=== PATIENT | male | born 1950 | race Caucasian/White ===

== ENCOUNTER 2019-06-17 10:25 | Emergency (ER) | payer MEDICARE, SELFPAY ==
[2019-06-17 10:29] VITALS: BP 174/100; BP 186/94; PULSE 84; RESP 19; TEMP 36.4; O2SAT 97; BMI 27.8
--- NOTE | 2019-06-17 10:36 | ECG_ITS ---
Measurements Intervals [place] Rate: 73 P: 36 SC: 137 QRS: 171 QRSD: 154 T: 85 QT: 436 QTc: 482 ELECTRONIC VENTRICULAR PACEMAKER ABNORMAL RHYTHM ECG No previous ECG available for comparison Electronically Signed On 06-17-2019 19:27:12 [employer] SWAGE OPERATOR by Antoine Lopez M.D. [id number]
--- NOTE | 2019-06-17 10:36 | XR_ITS ---
WS: [id number] Portable AP upright chest, 06/17/2019 Clinical Data: high blood pressure Comparison: Portable chest, 05/14/2010. Findings: No nodules, masses or effusions are seen. The heart is normal. The pulmonary vascularity is not increased. No pneumonia or pneumothorax is seen. There is a multilead pacemaker in good position . The generator overlies the left lower lung. XR/XR chest 1V portable [id number] Impression: Atherosclerosis.
--- NOTE | 2019-06-17 10:43 | ED_ITS ---
HPI - General Adult General: Chief complaint: General Medical Stated complaint: High Blood pressure Time Seen by Provider: 06/17/19 10:43 Source: patient Mode of arrival: ambulatory Limitations: no limitations History of Present Illness: HPI narrative: Patient comes in this morning due to high blood pressure and some mild chest discomfort. Patient reports waking up at 4 in check his blood pressure and it was like 220 systolic. Patient then got up at 8 and had some chest discomfort which he had also had previously and his blood pressure at that time was 200 systolic. Patient comes in due to the chest discomfort and the elevated blood pressure. Patient reports chest discomfort has resolved. And blood pressure seems to have improved some since arriving to the ER. Nursing checked blood pressure in both arms which they were similar. Patient appears well. Patient appears in no acute distress. Associated symptoms: Reports chest pain (mild) Review of Systems General: Reports: 10 or more systems reviewed and unremarkable except in HPI and below Card: Reports: chest pain (mild) PFSH ED PFSH: Statuses (acute, chronic, etc) shown below reflect problem list status as previously entered and may not be historically accurate Social History Smoking and tobacco status: former smoker Physical Exam Const: COMMON NORMALS: no apparent distress and oriented x3 GENERAL APPEARANCE: cooperative HENMT: COMMON NORMALS: normocephalic, external ears normal, EAC's normal, TM's normal bilaterally and external nose normal HEAD & SCALP: normal to inspection and normocephalic FACE & SINUS: normal facial exam NOSE: external nose normal GENERAL EAR: hearing not grossly impaired EXTERNAL EAR: Yes external ears normal EXTERNAL AUDITORY CANAL: EAC's normal TYMPANIC MEMBRANE: TM's normal bilaterally MOUTH: oral and palatal mucosa normal THROAT: posterior oropharynx normal Eye: COMMON NORMALS: PERRL and EOMs intact bilaterally PUPIL: Yes PERRL Neck/C-Spine: COMMON NORMALS: full ROM and no lymphadenopathy Lymph: LYMPHATIC: no lymphedema noted Chest: COMMONS NORMALS: inspection of chest normal and palpation of chest normal Resp: COMMON NORMALS: normal respiratory effort and clear to auscultation bilaterally AUSCULTATION: clear to auscultation bilaterally Cardio: COMMON NORMALS: regular rate and regular rhythm RATE: regular rate RHYTHM: regular rhythm GI: COMMON NORMALS: normal to inspection, nondistended, normoactive bowel sounds and non-tender : COMMON NORMALS: Yes no CVA tenderness BLADDER/KIDNEY EXAM: Yes no CVA tenderness Back/Pelvis: COMMON NORMALS: no CVA tenderness and thoracic and lumbar spine normal to inspection Extremity: COMMON NORMALS: normal to inspection GENERAL: No edema Neuro: COMMON NORMALS: oriented x3, moves all extremities and no focal motor deficits Psych: COMMON NORMALS: mental status grossly normal and cooperative Skin: COMMON NORMALS: no rashes or lesions noted GENERAL SKIN EXAM: no rashes or lesions noted Course Vital Signs: Vital signs: Vital Signs Temperature 97.5 F L 06/17/19 10:29 Pulse Rate 75 06/17/19 11:01 Respiratory Rate 18 06/17/19 12:08 Blood Pressure 186/96 06/17/19 12:08 Pulse Oximetry 97 06/17/19 11:01 MDM - General Adult MDM Narrative: Medical decision making narrative: Patient comes in today with complaints of elevated blood pressure. Patient states that for last 2 weeks he has had a cough and cold symptoms that has not been able to improve. Patient has been taking extra ibuprofen and he is noted that his blood pressure is elevated over the time. Patient comes in this morning due to some chest discomfort that started about 4:00. Patient denies any pain at this time. Exam notes respirations were even lungs were clear to auscultation with good air movement. No edema was noted in the extremities. Differential diagnosis includes CHF, ACS, pneumonia, acute bronchitis, uncontrolled hypertension, adverse drug effect. Laboratory values were insignificant. Chest x-ray was normal. Reviewed exam with patient recommended treatment for bronchitis and clonidine as needed for breakthrough blood pressure. Discussed use of ibuprofen and try to decrease the amount of ibuprofen he is using and use Tylenol more often. Patient reports understanding of care plan and need for follow-up with primary care in 1 week. Lab Data: Labs: Lab Results 06/17/19 06/17/19 06/17/19 Range/Units 10:50 10:50 10:50 WBC 6.6 (4.0-10.0) 10^3/ uL RBC 3.97 L (4.1-5.3) 10^6/u L Hgb 9.3 L (11.7-16.6) g/dL Hct 31.0 L (42.0-52.0) % MCV 78.1 L (80-94) fL MCH 23.4 L (28.0-34.0) pg MCHC 30.0 (30.0-36.0) g/dL RDW 15.3 H (12.1-15.1) % Plt Count 234 (130-400) 10^3/c mm MPV 9.2 (7.4-10.4) fL Neut % (Auto) 64.7 % Lymph % (Auto) 20.5 % [place] % (Auto) 6.0 % Eos % (Auto) 7.4 % Baso % (Auto) 0.8 % Neut # (Auto) 4.3 (1.8-7.7) 10^3/u L Lymph # (Auto) 1.4 (0.8-4.8) 10^3/u L [place] # (Auto) 0.4 (0.2-0.9) 10^3/u L Eos # (Auto) 0.5 (0.0-0.8) 10^3/u L Baso # (Auto) 0.1 (0.0-0.1) 10^3/u L Nucleated RBC % (a uto) 0 % Nucleated RBCs # 0.0 /100WBC Sodium 137 (136-145) mmol/L Potassium 4.0 (3.5-5.1) mmol/L Chloride 101 (98-107) mmol/L Carbon Dioxide 24 (22-29) mmol/L Anion Gap 16.0 (5-19) BUN 9 (8-23) mg/dL Creatinine 1.1 (0.7-1.2) mg/dL Glucose 142 H (74-106) mg/dL Calcium 9.7 (8.8-10.2) mg/Dl Magnesium 1.6 L (1.7-2.3) mg/dL Total Bilirubin 0.4 (0.15-1.2) mg/dL AST 25 (0-40) U/L ALT 19 (0-41) U/L Alkaline Phosphata se 81 (40-130) IU/L Troponin T Baselin e 13 (0-15) ng/mL NT-Pro-B Natriuret Pep (0-125) pg/mL Total Protein 7.8 (6.6-8.7) g/dL Albumin 4.4 (3.5-5.2) g/dL Globulin 3.4 (1.3-4.6) g/dL TSH 1.91 (0.27-4.20) uIU/ mL Urine Color (Yellow) Urine Appearance (CLEAR) Urine pH (5-7) Ur Specific Gravit y (1.005-1.030) Urine Protein (Negative) Urine Glucose (UA) (Normal) Urine Ketones (Negative) Urine Occult Blood (Negative) Urine Nitrate (Negative) Urine Bilirubin (NEGATIVE) Urine Urobilinogen (Negative) mg/dL Ur Leukocyte Jade ase (Negative) Urine RBC (0-2) /hpf Urine WBC (0-5) /hpf Ur Squamous Epith Cells (0-5) Urine Bacteria (NONE) 06/17/19 06/17/19 Range/Units 10:50 11:49 WBC (4.0-10.0) 10^3/ uL RBC (4.1-5.3) 10^6/u L Hgb (11.7-16.6) g/dL Hct (42.0-52.0) % MCV (80-94) fL MCH (28.0-34.0) pg MCHC (30.0-36.0) g/dL RDW (12.1-15.1) % Plt Count (130-400) 10^3/c mm MPV (7.4-10.4) fL Neut % (Auto) % Lymph % (Auto) % [place] % (Auto) % Eos % (Auto) % Baso % (Auto) % Neut # (Auto) (1.8-7.7) 10^3/u L Lymph # (Auto) (0.8-4.8) 10^3/u L [place] # (Auto) (0.2-0.9) 10^3/u L Eos # (Auto) (0.0-0.8) 10^3/u L Baso # (Auto) (0.0-0.1) 10^3/u L Nucleated RBC % (a uto) % Nucleated RBCs # /100WBC Sodium (136-145) mmol/L Potassium (3.5-5.1) mmol/L Chloride (98-107) mmol/L Carbon Dioxide (22-29) mmol/L Anion Gap (5-19) BUN (8-23) mg/dL Creatinine (0.7-1.2) mg/dL Glucose (74-106) mg/dL Calcium (8.8-10.2) mg/Dl Magnesium (1.7-2.3) mg/dL Total Bilirubin (0.15-1.2) mg/dL AST (0-40) U/L ALT (0-41) U/L Alkaline Phosphata se (40-130) IU/L Troponin T Baselin e (0-15) ng/mL NT-Pro-B Natriuret Pep 409 H (0-125) pg/mL Total Protein (6.6-8.7) g/dL Albumin (3.5-5.2) g/dL Globulin (1.3-4.6) g/dL TSH (0.27-4.20) uIU/ mL Urine Color Straw (Yellow) Urine Appearance Clear (CLEAR) Urine pH 7.0 (5-7) Ur Specific Gravit y 1.000 L (1.005-1.030) Urine Protein 1+ H (Negative) Urine Glucose (UA) Norm (Normal) Urine Ketones Negative (Negative) Urine Occult Blood Neg (Negative) Urine Nitrate Negative (Negative) Urine Bilirubin Neg (NEGATIVE) Urine Urobilinogen Norm (Negative) mg/dL Ur Leukocyte Jade ase Negative (Negative) Urine RBC None (0-2) /hpf Urine WBC None (0-5) /hpf Ur Squamous Epith Cells Rare (0-5) Urine Bacteria Trace (NONE) Discharge Plan Discharge Patient Disposition: Home, Self-Care Clinical Impression: Acute bronchitis Qualifiers: Bronchitis organism: unspecified organism Qualified Code(s): J20.9 - Acute bronchitis, unspecified Hypertension Qualifiers: Hypertension type: unspecified Qualified Code(s): I10 - Essential (primary) hypertension Condition: Stable Prescriptions: New clonidine HCl 0.1 mg tablet 0.1 mg PO Q8H PRN (Reason: hypertensive emergency) Qty: 30 RF: 0 doxycycline hyclate 100 mg capsule 100 mg PO Q12H 10 Days Qty: 20 RF: 0 alprazolam 0.25 mg tablet 0.25 mg PO TID PRN (Reason: anxiety) Qty: 20 RF: 0 Discharge Diet: Usual diet Discharge Activity: Resume usual activity Patient Instructions: Hypertension (ED) Activity Restrictions/Additional Instructions: Drink plenty of fluids, within any fluid restrictions Follow-up with primary care in one week Medications as directed Return to ER for high fever or worsening shortness of breath Coding Level 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
[2019-06-17 10:59] LABS: Basophils # 0.1 10^3/uL (0.0-0.1); Basophils % 0.8 %; Eosinophils # 0.5 10^3/uL (0.0-0.8); Eosinophils % 7.4 %; Hemoglobin 9.3 g/dL (11.7-16.6); Lymphocytes # 1.4 10^3/uL (0.8-4.8); Lymphocytes % 20.5 %; Mean Corpuscular Hemoglobin 23.4 pg (28.0-34.0); Mean Corpuscular Volume 78.1 fL (80-94); Mean Platelet Volume 9.2 fL (7.4-10.4); Monocytes # 0.4 10^3/uL (0.2-0.9); Neutrophils # 4.3 10^3/uL (1.8-7.7); Neutrophils % 64.7 %; Nucleated Red Blood Cells % 0 %; Platelet Count 234 10^3/cmm (130-400); Red Blood Count 3.97 10^6/uL (4.1-5.3); Red Cell Distribution Width 15.3 % (12.1-15.1); White Blood Count 6.6 10^3/uL (4.0-10.0)
[2019-06-17 11:01] VITALS: BP 171/97; PULSE 75; RESP 20; O2SAT 97
[2019-06-17 11:18] LABS: Troponin(5th) Baseline 13 ng/mL (0-15)
[2019-06-17 11:25] LABS: Alanine Aminotransferase 19 U/L (0-41); Albumin Level 4.4 g/dL (3.5-5.2); Alkaline Phosphatase 81 IU/L (40-130); Aspartate Amino Transferase 25 U/L (0-40); Blood Urea Nitrogen 9 mg/dL (8-23); Calcium 9.7 mg/Dl (8.8-10.2); Carbon Dioxide 24 mmol/L (22-29); Chloride 101 mmol/L (98-107); Globulin 3.4 g/dL (1.3-4.6); Glucose 142 mg/dL (74-106); Magnesium 1.6 mg/dL (1.7-2.3); Sodium 137 mmol/L (136-145); Thyroid Stimulating Hormone 1.91 uIU/mL (0.27-4.20); Total Bilirubin 0.4 mg/dL (0.15-1.2); Total Protein 7.8 g/dL (6.6-8.7)
[2019-06-17 11:27] LABS: NT Pro B Type Natriuretic Pept 409 pg/mL (0-125)
[2019-06-17 12:08] VITALS: BP 186/96; RESP 18
[2019-06-17 12:18] LABS: Bilirubin Urine Neg (NEGATIVE); Blood Urine Neg (Negative); Glucose Urine UA Norm (Normal); Ketones Urine Negative (Negative); Nitrate Urine Negative (Negative); Protein Urine 1+ (Negative); Urine Appearance Clear (CLEAR); Urine Color Straw (Yellow)
[2019-06-17 12:19] LABS: Leukocyte Esterase Urine Negative (Negative); Urobilinogen Urine Norm (Negative)
[2019-06-17 12:25] LABS: Squamous Epithelial Cell Urine RARE (0-5)
[2019-06-17 12:26] LABS: Add Urine Culture? No; Bacteria Urine TRACE
[2019-06-17] MEDS: cloNIDine 0.1 mg Tablet PO (12:27)
[2019-06-17 12:46] VITALS: BP 185/103; PULSE 68; RESP 20; O2SAT 97
== END 2019-06-17 12:47 | disposition home or self-care (01) ==
PROVIDERS: Emergency Provider Nurse Practitioner Family
DX: I10 Essential (primary) hypertension (principal); J20.9 Acute bronchitis, unspecified; Z87.891 Personal history of nicotine dependence
CPT/HCPCS: 36415; 71045; 80053; 81001; 83735; 83880; 84443; 84484; 85025; 93005; 99283; A9270

== ENCOUNTER 2019-08-29 03:31 | Emergency (ER) | payer MEDICARE, SELFPAY ==
--- NOTE | 2019-08-29 03:35 | ED_ITS ---
Entered by Marie Lemus, acting as scribe for Sue Giron MD HPI - Extremity Injury (Lower) General: Chief Complaint: Extremity Injury, Lower Stated Complaint: right hip pain Time Seen by Provider: 08/29/19 03:34 Source: patient Mode of arrival: wheelchair Limitations: no limitations History of Present Illness: HPI Narrative: 69 yo m came to the er for right hip pain. Pt said that he has a pain in his right hip that radiates all down his right leg. Pt said that he did not fall or any injury, he came in because the pain got so bad. Pt rates the pain a 10/10. he state the pain is worse with walking and palpation. denies any bowel or bladder incontinence. Injury: Right: hip (pain) Place: home Severity: mild Relieving factors: nothing Exacerbating factors: weight bearing and movement Context: other (just hurts per pt) Other symptoms: none Review of Systems General: Reports: other (negative unless marked) Const: Denies: fever, chills, body aches or change in appetite Eyes: Denies: blurry vision or eye discomfort ENMT: Denies: throat pain or dental pain Card: Denies: chest pain Resp: Denies: shortness of breath GI: Denies: abdominal pain, nausea, vomiting or diarrhea : Denies: painful urination Musc: Reports: extremity pain (right hip pain that radiates down his right leg) Skin/Breast: Denies: rash Neuro: Denies: headache Psych: Denies: depression Moiz/Lymph: Denies: easy bruising All/Imm: Denies: hives PFSH ED PFSH: Social History Smoking and tobacco status: former smoker Physical Exam Const: COMMON NORMALS: no apparent distress, oriented x3 and healthy appearing HENMT: COMMON NORMALS: normocephalic and head/scalp atraumatic HEAD & SCALP: normocephalic and atraumatic Eye: COMMON NORMALS: PERRL and EOMs intact bilaterally PUPIL: Yes PERRL Neck/C-Spine: COMMON NORMALS: full ROM and supple Chest: COMMONS NORMALS: inspection of chest normal and palpation of chest normal Resp: COMMON NORMALS: normal respiratory effort, no retractions, no use of accessory muscles and clear to auscultation bilaterally AUSCULTATION: clear to auscultation bilaterally Cardio: COMMON NORMALS: regular rate, regular rhythm and no murmurs RATE: regular rate RHYTHM: regular rhythm GI: COMMON NORMALS: normal to inspection, nondistended, normoactive bowel sounds, soft to palpation, non-tender and no masses PALPATION: Yes soft Extremity: COMMON NORMALS: normal to inspection and full ROM NARRATIVE EXTREMITY EXAM: tenderness over right lower lumbar. no saddle anesthesia. pt able to ambulate without difficulty Neuro: COMMON NORMALS: oriented x3, moves all extremities and no focal motor deficits Psych: COMMON NORMALS: mental status grossly normal, thought process normal and cooperative THOUGHT PROCESS: normal thought process Skin: COMMON NORMALS: no rashes or lesions noted and no wounds GENERAL SKIN EXAM: no rashes or lesions noted MDM - Extremity Injury (Lower) MDM Narrative: Medical decision making narrative: Patient presents here with right lumbar pain with sciatica. Patient given instructions on piriformis stretches. Patient is to ice as well. We will place him on Naprosyn along with a steroid. Patient is stable for discharge. He has no signs of cord compression or epidural abscess. Discharge Plan Discharge Patient Disposition: Home, Self-Care Clinical Impression: Sciatica of right side Condition: Stable Prescriptions: New prednisone 50 mg tablet 50 mg PO DAILY Qty: 5 RF: 0 EC-Naprosyn 500 mg tablet,delayed release (DR/EC) 500 mg PO BID PRN (Reason: pain) Qty: 20 RF: 0 No Action clonidine HCl 0.1 mg tablet 0.1 mg PO Q8H PRN (Reason: hypertensive emergency) Qty: 30 RF: 0 alprazolam 0.25 mg tablet 0.25 mg PO TID PRN (Reason: anxiety) Qty: 20 RF: 0 Discharge Orders: Discharge Order (Routine); Ordered 08/29/19 Ordered By: Sue Giron Discharge Diet: Advance as tolerated Discharge Activity: Resume usual activity Patient Instructions: Sciatica (ED), Piriformis Syndrome (ED) Coding Level of Care Code ED Transfusion Nurse for Reggie Mishra The documentation recorded by the Allan sims Stephanie Lyn, accurately reflects the service I personally performed and the decisions made by Bree tirado Korby, MD Aug 29, 2019 03:31
[2019-08-29 03:42] VITALS: BP 179/89; PULSE 90; RESP 16; TEMP 36.6; O2SAT 95; BMI 29.1
[2019-08-29] MEDS: predniSONE 20 mg Tablet 60 MG PO (03:45)
[2019-08-29] MEDS: HYDROcodone-acetaminophen 7.5-325 mg Tablet 1 TAB PO (03:45)
[2019-08-29 04:00] VITALS: BP 176/88; PULSE 90; RESP 14; O2SAT 95
--- NOTE | 2019-08-29 04:04 | PC.NURSE ---
RN reviewed and agrees with assessment
== END 2019-08-29 04:05 | disposition home or self-care (01) ==
PROVIDERS: Emergency Provider Emergency Medicine
DX: M54.41 Lumbago with sciatica, right side (principal); Z87.891 Personal history of nicotine dependence
CPT/HCPCS: 12345; 99281; 99283; J7512

== ENCOUNTER 2019-10-03 20:11 | Emergency (ER) | payer MEDICARE, SELFPAY ==
--- NOTE | 2019-10-03 20:21 | XR_ITS ---
WS: [id number] PORTABLE CHEST HISTORY: pneumonia COMPARISON: 06/17/2019 LEFT subclavian cardiac pacer defibrillator. Lungs are clear and well expanded. No pleural effusion or pneumothorax. Cardiac size: Normal. Mediastinum/Aorta: Normal mediastinum. No osseous abnormality seen. XR/XR chest 1V portable [id number] IMPRESSION: Unremarkable portable chest.
[2019-10-03 20:22] VITALS: BP 171/93; PULSE 112; RESP 20; TEMP 36.6; O2SAT 95; BMI 27.8
--- NOTE | 2019-10-03 20:40 | W.ED.URI ---
HPI - URI/Sore Throat General: Chief Complaint: Upper Respiratory Infection Stated Complaint: COUGH Time Seen by Provider: 10/03/19 20:22 Source: patient Mode of arrival: ambulatory Limitations: no limitations History of Present Illness: HPI Narrative: Patient is a very nice 69-year-old gentleman who presents to ED today with complaints of a cough. Patient states cough is mainly nonproductive. He does not complain of any chest pain or difficulty breathing. Patient tells me he always gets a cough this time a year and states it is related to seasonal allergies. He states both him and his were sick back in June with cough/congestion for about 2 weeks but both seem to improve. Patient has not been running fevers. He has no other URI symptoms apart from occasional rhinorrhea that he again contributes to allergies. He does tell me he takes lisinopril daily and has so for a long period of time. He is spoken to his sole leveler machine about the cough and possibility of it being related to the lisinopril-he states sole leveler machine wanted to keep him on the medication. MD elicited complaint: cough Onset (ago): month(s) Consistency: intermittent Severity: mild Description of mucous: clear Able to tolerate fluids by mouth: Yes Exacerbating factors: nothing Relieving factors: nothing Associated symptoms: Reports no associated symptoms; Deny abdominal pain, chills, chest pain, diarrhea, fever(s), headache(s), nausea or vomiting Review of Systems Const: Denies: fever, chills, body aches, fatigue or malaise Eyes: Denies: change in vision, blurry vision, photophobia, eye discharge, floaters or seeing flashes ENMT: Denies: throat pain, enlarged tonsils or painful swallowing Card: Denies: chest pain, palpitations, irregular heart rhythm, edema, swelling of feet/ankles, lightheadedness, syncope, pre-syncope, shortness of breath on exertion, shortness of breath when lying down or leg pain with exertion Resp: Reports: non-productive cough; Denies: shortness of breath, pain on inspiration, coughing up blood or chest congestion GI: Denies: abdominal pain, nausea, vomiting or diarrhea Musc: Denies: neck pain or back pain Skin/Breast: Denies: rash Neuro: Denies: headache, numbness in extremities, weakness in extremities or changes in sensation PFSH ED PFSH: Social History Smoking and tobacco status: former smoker Physical Exam Const: COMMON NORMALS: no apparent distress, average body habitus, oriented x3, no limitations, healthy appearing, alert and well nourished HENMT: COMMON NORMALS: normocephalic, head/scalp atraumatic, hearing grossly normal bilaterally, external ears normal, EAC's normal, TM's normal bilaterally, external nose normal, nasal mucous membranes and turbinates normal, moist oral mucous membranes and oropharynx normal HEAD & SCALP: normal to inspection, normocephalic and atraumatic FACE & SINUS: normal facial exam and sinuses nontender NOSE: external nose normal and nasal mucous membranes and turbinates normal EXTERNAL EAR: Yes external ears normal EXTERNAL AUDITORY CANAL: EAC's normal TYMPANIC MEMBRANE: TM's normal bilaterally MOUTH: oral and palatal mucosa normal THROAT: posterior oropharynx normal, tonsils normal and uvula midline Eye: COMMON NORMALS: PERRL and EOMs intact bilaterally PUPIL: Yes PERRL Neck/C-Spine: COMMON NORMALS: no lymphadenopathy Resp: COMMON NORMALS: normal respiratory effort and clear to auscultation bilaterally AUSCULTATION: clear to auscultation bilaterally Cardio: COMMON NORMALS: regular rate and regular rhythm RATE: regular rate RHYTHM: regular rhythm Neuro: COMMON NORMALS: oriented x3 SENSORIUM/ORIENTATION: Yes alert Skin: COMMON NORMALS: no rashes or lesions noted GENERAL SKIN EXAM: no rashes or lesions noted Course Vital Signs: Vital signs: Vital Signs Temperature 97.8 F 10/03/19 20:22 Pulse Rate 102 H 10/03/19 21:18 Respiratory Rate 16 10/03/19 21:18 Blood Pressure 134/78 10/03/19 21:18 Pulse Oximetry 98 10/03/19 21:18 MDM - URI/Sore Throat MDM Narrative: Medical decision making narrative: DDx includes-allergic rhinitis, DANDRE-I induced cough, bronchitis, other viral URI; recommend he follow up with PCP if allergy meds/cough meds given to him today does not seem to help Imaging Data^: CXR: My impression: No acute changes from previous films Discharge Plan Discharge Patient Disposition: Home, Self-Care Clinical Impression: Cough Condition: Stable Prescriptions: New promethazine-codeine 6.25-10 mg/5 mL syrup 5 ml PO Q6H PRN (Reason: cough) Qty: 473 RF: 0 Claritin 10 mg tablet 10 mg PO DAILY Qty: 20 RF: 0 No Action clonidine HCl 0.1 mg tablet 0.1 mg PO Q8H PRN (Reason: hypertensive emergency) Qty: 30 RF: 0 alprazolam 0.25 mg tablet 0.25 mg PO TID PRN (Reason: anxiety) Qty: 20 RF: 0 prednisone 50 mg tablet 50 mg PO DAILY Qty: 5 RF: 0 EC-Naprosyn 500 mg tablet,delayed release (DR/EC) 500 mg PO BID PRN (Reason: pain) Qty: 20 RF: 0 Discharge Orders: Discharge Order (Routine); Ordered 10/03/19 Ordered By: Aneta Castorena Patient Instructions: Allergic Rhinitis (ED), Acute Cough (ED) Discharge Date/Time: 10/03/19 21:19 Coding Level of Care Code ED Application Consultant for Reggie Mishra
[2019-10-03 20:50] VITALS: BP 134/84; PULSE 110; RESP 20; O2SAT 98
[2019-10-03] MEDS: promethazine-cod syrup 6.25-10mg/5 mL UDC PO (21:15)
[2019-10-03 21:18] VITALS: BP 134/78; PULSE 102; RESP 16; O2SAT 98
== END 2019-10-03 21:19 | disposition home or self-care (01) ==
PROVIDERS: Emergency Provider Physician Assistant
DX: R05 Cough (principal); Z87.891 Personal history of nicotine dependence
CPT/HCPCS: 12345; 71045; 99281; 99283